=== PATIENT | male | born 1960 | race Caucasian/White ===

== ENCOUNTER 2021-06-09 17:00 | Outpatient (CLI) | payer MEDICAID, SELFPAY ==
--- NOTE | 2021-06-09 17:31 | ECG_ITS ---
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 Measurements Intervals Griffin Rate: 88 P: 68 IN: 108 QRS: 53 QRSD: 90 T: 60 QT: 340 QTc: 412 Interpretive Statements SINUS RHYTHM WITH SHORT IN INTERVAL NONSPECIFIC ST & T-WAVE ABNORMALITY No previous ECG available for comparison Electronically Signed On [email or web address] 17:03:49 CDT by Kendrick Torres M.D. [email or web address]
== END 2021-06-09 17:01 | disposition home or self-care (01) ==
PROVIDERS: PCP Specialist; Visit Provider Specialist
DX: D23.21 Other benign neoplasm of skin of right ear and external auricular canal (principal)
CPT/HCPCS: 93005

== ENCOUNTER → 2021-06-11 09:09 | Outpatient (BNVA) | payer MEDICAID, SELFPAY | PROVIDERS: PCP Specialist; Visit Provider Specialist | DX: D23.21 Other benign neoplasm of skin of right ear and external auricular canal (principal) | CPT/HCPCS: 80048; 85025 ==